=== PATIENT | male | born 2000 | race Caucasian/White ===

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

== ENCOUNTER 2019-01-06 04:33 | Emergency (ER) | payer SELFPAY ==
[~2019-01-06] VITALS: Ht 172.7 cm; Wt 100.0 kg
[2019-01-06 04:55] VITALS: BP 153/84
== END 2019-01-06 05:58 | disposition left against medical advice (07) ==
LOC: ER 04:33
DX: Z53.21 Procedure and treatment not carried out due to patient leaving prior to being seen by health care provider (principal)

== ENCOUNTER 2019-07-15 20:34 | Emergency (ER) | payer SELFPAY ==
[~2019-07-15] VITALS: Ht 170.2 cm; Wt 79.0 kg
[2019-07-15 20:42] VITALS: BP 129/75
== END 2019-07-15 21:16 | disposition left against medical advice (07) ==
LOC: ER 20:34
DX: M54.2 Cervicalgia (principal); Z53.21 Procedure and treatment not carried out due to patient leaving prior to being seen by health care provider

== ENCOUNTER 2024-01-27 10:22 | Emergency (ER) | payer SELFPAY ==
[~2024-01-27] VITALS: Ht 172.7 cm; Wt 86.0 kg
[2024-01-27 10:26] VITALS: BP 167/93; PULSE 105; RESP 18; TEMP 99.1; O2SAT 99
[2024-01-27] MEDS: BACITRACIN ZINC OINT UDPKT TOP ONE (11:00)
[2024-01-27] MEDS: LIDOCAINE HCL/PF 1% 10 MG/ML 5ML VIAL INFIL ONE (11:00)
[2024-01-27] MEDS: ACETAMINOPHEN 325MG TABLET PO ONE (11:00)
[2024-01-27] MEDS: TETANUS, DIPHTHERIA, PERTUSSIS VAC/PF 0.5ML (>10YR OLD) IM ONE (11:36)
[2024-01-27] MEDS ORDERED: BO1 TP (14:04)
[2024-01-27] MEDS ORDERED: IBUP-2029 MT (14:04)
== END 2024-01-27 14:42 | disposition home or self-care (01) ==
LOC: ER 10:22
DX: R51.9 Headache, unspecified (principal); F12.10 Cannabis abuse, uncomplicated
CPT/HCPCS: 70450; 70486; 72125; 90715; 12014; 90471; 99285; J3490; Z7610 ×2

== ENCOUNTER 2024-04-13 07:52 | Emergency (ER) | payer OTHER ==
[~2024-04-13] VITALS: Ht 170.2 cm; Wt 77.0 kg
[~2024-04-13 07:52] MED LIST: BO1 TP; IBUP-2029 MT
[2024-04-13 07:55] VITALS: O2SAT 100
[2024-04-13 08:35] LABS: BASOPHILS % 0.7 % (0.0-2.0); EOSINOPHILS % 0.3 % (0.0-5.0); HEMATOCRIT. 41.9 % (42.0-52.0); HEMOGLOBIN. 13.9 g/dL (14.0-18.0); LYMPHOCYTES % 11.1 % (20.0-50.0); MEAN CORPUSCULAR HEMOGLOBIN 31.2 pg (28.0-32.0); MEAN CORPUSCULAR HGB CONC 33.2 g/dL (31.0-37.0); MEAN CORPUSCULAR VOLUME 94.1 fL (80.0-94.0); MONOCYTES % 6.6 % (2.0-8.0); NEUTROPHILS % 81.3 % (40.0-76.0); PLATELET 290 x1000/uL (130-400); RED BLOOD CELL COUNT 4.45 mill/uL (4.7-6.1); RED CELL DISTRIBUTION WIDTH 14.9 % (11.6-14.6); WHITE BLOOD COUNT 6.8 x1000/uL (4.5-11.0)
[2024-04-13] MEDS: FAMOTIDINE 20MG TABLET PO ONE (08:35)
[2024-04-13 08:41] LABS: CHLORIDE 104 mEq/L (98-107); POTASSIUM 4.7 mEq/L (3.5-5.1); SODIUM 138 mEq/L (136-145)
[2024-04-13 08:42] LABS: CARBON DIOXIDE 22 mEq/L (21-32)
[2024-04-13 08:43] LABS: CALCIUM 9.8 mg/dL (8.7-10.4)
[2024-04-13 08:47] LABS: GLUCOSE 112 mg/dL (70-105); UREA NITROGEN BLOOD 12 mg/dL (9-23)
[2024-04-13 08:49] LABS: ALANINE AMINOTRANSFERASE 30 IU/L (10-49); ASPARTATE AMINOTRANSFERASE 50 IU/L (<34)
[2024-04-13 08:50] LABS: BILIRUBIN TOTAL 1.1 mg/dL (0.1-1.0); PROTEIN TOTAL 7.6 g/dL (6.0-8.3)
[2024-04-13 09:15] VITALS: BP 146/87; PULSE 86; RESP 13; TEMP 98.4
== END 2024-04-13 09:20 ==
LOC: ER 07:52
DX: F15.90 Other stimulant use, unspecified, uncomplicated (principal); F10.20 Alcohol dependence, uncomplicated; F12.90 Cannabis use, unspecified, uncomplicated
CPT/HCPCS: 80053; 83690; 85025; 36415; 99283; Z7610 ×2